=== PATIENT | male | born 1990 | race Caucasian/White ===

== ENCOUNTER 2018-11-04 08:44 | Emergency (ER) | payer BC ==
--- NOTE | 2018-11-04 09:06 | EDM.PDOC ---
ED HPI GENERAL MEDICAL PROBLEM - General Chief Complaint: Upper Extremity Injury/Pain Stated Complaint: LT WRIST INJURY Time Seen by Provider: 11/04/18 09:00 Source of Information: Reports: Patient History Limitations: Reports: No Limitations - History of Present Illness INITIAL COMMENTS - FREE TEXT/NARRATIVE: 28-year-old male presents to the ED with injury to the left forearm and wrist area that occurred late last night. Patient was drinking alcohol fairly heavily in [place] remember exactly how he fell. She stumbled forward landing with his body on top of his left forearm and wrist. This morning he is unable to make a fist and has no ability to pronate or supinate at the elbow. Examination reveals hematoma dorsal aspect of the right wrist and pain over the radial head. He denies any other injuries. Onset: Sudden Onset Date: 11/03/18 Onset Time: 22:30 (Tripped and fell last night landing with his body weight on his) Duration: Hour(s): ( left wrist.) Location: Reports: Upper Extremity, Left Quality: Reports: Ache, Other (Unable to pronate or supinate at the elbow and unable to make a fist left hand) Severity: Moderate (810) Improves with: Reports: Rest Worsens with: Reports: Movement Context: Reports: Trauma (Tripped and fell last night and landed on his left forearm. He believes he landed with all of his body weight on top of his arm.). 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 [No Known Home Meds] 11/04/18 [History] Past Medical History - Past Surgical History HEENT Surgical History: Reports: Other (See Below) Other HEENT Surgeries/Procedures: wisdom teeth removal Musculoskeletal Surgical History: Reports: Other (See Below) Other Musculoskeletal Surgeries/Procedures:: back surgeries x2 Social & Family History - Tobacco Use Smoking Status *Q: Light Tobacco Smoker Years of Tobacco use: 4 Packs/Tins Daily: 0.1 - Caffeine Use Caffeine Use: Reports: Energy Drinks, Soda - Recreational Drug Use Recreational Drug Use: No - Living Situation & Occupation Occupation: Employed Review of Systems - Review of Systems Review Of Systems: See Below Constitutional: Reports: No Symptoms Eyes: Reports: No Symptoms Ears: Reports: No Symptoms Nose: Reports: No Symptoms Mouth/Throat: Reports: No Symptoms Respiratory: Reports: No Symptoms Cardiovascular: Reports: No Symptoms GI/Abdominal: Reports: No Symptoms Genitourinary: Reports: No Symptoms Musculoskeletal: Reports: Other Skin: Reports: Bruising (Acute injury to the left wrist and forearm last evening when he fell.) Neurological: Reports: No Symptoms ( Bruising dorsal aspect left wrist) Psychiatric: Reports: No Symptoms ED EXAM, GENERAL - Physical Exam Exam: See Below Exam Limited By: No Limitations General Appearance: Alert, WD/WN, Mild Distress, Other (He has very limited movement of his left wrist or forearm.) Eye Exam: Bilateral Eye: Normal Inspection Peripheral Pulses: 3+: Radial (L) Extremities: Other (Examination was limited to the left forearm. Patient has swelling and ecchymoses dorsal distal left wrist. He is inability to make a fist due to pain in the wrist area. The wrist area is swollen with suspect fracture. He has also has pain over the radial head at the elbow. The humerus and shoulder appear to be intact. He denies injuries to his ribs head and face or knees.) Neurological: Alert, Oriented, CN II-XII Intact, Normal Cognition Psychiatric: Normal Affect, Normal Mood Skin Exam: Warm, Dry, Intact, Normal Color, No Rash Course - Vital Signs Last Recorded V/S: Last Vital Signs Temp 37.4 C 11/04/18 08:51 Pulse 109 H 11/04/18 08:51 Resp 15 11/04/18 08:51 BP 169/99 H 11/04/18 08:51 Pulse Ox 100 11/04/18 08:51 - Orders/Labs/Meds Orders: Active Orders 24 hr Category Date Time Status Forearm 2V Lt [CR] Stat Exams 11/04/18 09:10 Ordered Wrist Comp Min 3V Lt [CR] Stat Exams 11/04/18 09:00 Ordered - Radiology Interpretation Free Text/Narrative:: 28-year-old male presents to the ED with an injury to his left wrist and forearm that occurred late last night. Patient states he was drinking alcohol heavily and tripped and fell he believes with his whole weight landing on top of his left wrist underneath him. States this morning he is unable to make a fist has significant pain dorsal aspect of the distal radius and ulna and forearm. Pain over the radial head on examination. He is loss of pronation supination at the elbow. Your pulse evident. Plan x-ray of the left wrist 3 view and forearm 2 view. - Re-Assessments/Exams Free Text/Narrative Re-Assessment/Exam: 11/04/18 09:25 x-rays of the left forearm reveals some blood in the anterior fat pad at the elbow but no discrete fractures identified within the radial head or ulna. Distal humerus also appears normal. X-rays of the wrist and distal forearm also do not reveal any fractures. Injuries are soft tissue to the dorsal aspect of the wrist and extensor muscles. He was placed in an Lloyd wrap and advised ice pack the area one half hour out of every 3-4 hours today and Motrin 600 mg every 6 hours needed for pain relief. Expect gradual improvement over the next 3-7 days. Departure - Departure Time of Disposition: 09:26 Disposition: Home, Self-Care 01 Condition: Fair Clinical Impression: Contusion of left forearm, initial encounter, Sprain and strain of left wrist - Discharge Information *PRESCRIPTION DRUG MONITORING PROGRAM REVIEWED*: Not Applicable *COPY OF PRESCRIPTION DRUG MONITORING REPORT IN PATIENT [place]: Not Applicable Instructions: Contusion, [id number] Referrals: PCP,None [Primary Care Provider] - Forms: ED Department Discharge Additional Instructions: Evaluation in the emergency room today in regards to fall last night with blunt trauma to the left forearm and wrist and elbow area. Examination revealed pain over the radial head at the elbow with limited ability to supinate pronate at the elbow. There is soft tissue swelling and bruising over the dorsal aspect of the distal radius and ulna are in the forearm. Limited ability to make a fist. X -rays were therefore carried out on the wrist and distal forearm as well as the entire forearm. No broken bones from identified. There is a little blood in the elbow suggesting that it is suffered a contusion and will be sore for 3-5 days. Similarly no fractures identified in the wrist or distal radius or ulna. Injuries are soft tissue to the extensor tendons and muscles overlying the distal forearm. This will make it difficult to make a fist or have any good laborer wharf / grasp strength for the next 5-7 days. Suggest Lloyd wrap on during the day and off at night. Ice pack to the area one half hour out of every 4 hours today and tomorrow. Motrin 600 mg every 6 hours to relieve pain and inflammation. Expect gradual improvement over the next 7 days - My Orders Last 24 Hours: My Active Orders 11/04/18 09:00 Wrist Comp Min 3V Lt [CR] Stat 11/04/18 09:10 Forearm 2V Lt [CR] Stat - Assessment/Plan Last 24 Hours: My Active Orders 11/04/18 09:00 Wrist Comp Min 3V Lt [CR] Stat 11/04/18 09:10 Forearm 2V Lt [CR] Stat
--- NOTE | 2018-11-05 13:57 | CR ---
Left forearm: Two views of the left forearm were obtained. Anterior fat-pad is elevated likely representing small joint effusion within the elbow. No fracture or other bony abnormality is appreciated. Impression: 1. Joint effusion suggested within the elbow. 2. Left forearm study is otherwise unremarkable. Diagnostic code #2
--- NOTE | 2018-11-05 14:44 | CR ---
Left wrist: Four views of the left wrist were obtained. Comparison: No prior wrist study. Joint spaces are preserved. No discrete fracture or other bony abnormality is seen. Impression: 1. No abnormality is appreciated on the left wrist exam. Diagnostic code #1
== END 2018-11-04 09:35 | disposition home or self-care (01) ==
LOC: JD.ED 08:44
DX: S63.502A Unspecified sprain of left wrist, initial encounter (principal); S66.912A Strain of unspecified muscle, fascia and tendon at wrist and hand level, left hand, initial encounter; S50.12XA Contusion of left forearm, initial encounter; F17.210 Nicotine dependence, cigarettes, uncomplicated; W01.0XXA Fall on same level from slipping, tripping and stumbling without subsequent striking against object, initial encounter
CPT/HCPCS: 73090-26-LT; 73090-LT; 73110-26-LT; 73110-LT; 99282; 99283-25